=== PATIENT | male | born 1980 | race Caucasian/White ===

== ENCOUNTER 2023-10-28 12:45 | Outpatient (AMB) | payer OTHER, SELFPAY ==
--- NOTE | 2023-10-28 13:31 | MHC.OFFWIV ---
Intake Vital Signs 10/28/23 13:43 BP 122/80 Blood Pressure Location Rt brachial Position Sitting Pulse 77 Pulse Source Pulse Oximeter Temp 98.0 F Temp Source Temporal Artery Scan Pulse Oximetry (%) 97 Intake Visit Reasons: [employer] Dog Bite RT arm Intake Note: pt is here for c.o dog bite on rt arm Patient Tobacco Use Status: Never used Tobacco Allergies No Known Allergies Allergy (Verified 10/28/23 13:32) Do you need a note to return to daycare/school/sports/work: Yes HPI HPI Comments History of Present Illness Details Pt presents with dog bite R hand His dog; occured yesterday Dog UTD vaccines R hand dominant Washed out after it happened + increased redness/warmth today + full ROM digits and no numbness No medicine for symptoms No fever Dog was put down this am No safety concerns Unsure when last tdap was PFSH Social History Patient Tobacco Use Status: Never used Tobacco Review of Systems Const Denies chills and Denies fever(s) Musc Reports deformity, Reports joint swelling, Denies limited range of motion, Denies muscle weakness, Denies numbness and Denies tingling Skin/Breast Reports erythema and Reports wounds Neuro Denies numbness, Denies Sensory deficit (Neuro), Denies tingling and Denies tremor(s) Physical Exam Vital Signs: Last Vital Signs Temp 98.0 F 10/28/23 13:43 Pulse 77 10/28/23 13:43 BP 122/80 10/28/23 13:43 Pulse Ox 97 10/28/23 13:43 General: Non-toxic, NAD. Speaking full sentences. Skin: Warm dry throughout. R hand palmar aspect pt has 2 puncture wounds near thenar eminence. + erythema extending along radial aspect R palm and onto radial aspect R wrist. No erythema to digits on R hand. No bleeding or discharge. + slightly tender to palpation Respiratory: no respiratory distress Cardiac: Radial pulse inatct RUE MSK: + full ROM R wrist and all digits R hand. No tenderness to palpation extensor or flexer surfaces of fingers. Neurology: A/O. No aphasia or facial droop. Gait without abnormality Psych: Good mood and affect Neuro Sensory Exam: No Sensory deficit (Neuro) Assessment & Plan Assessment & Plan (1) Cellulitis of hand: Code(s): L03.119 - Cellulitis of unspecified part of limb Plan: see below (2) Dog bite: Code(s): W54.0XXA - Bitten by dog, initial encounter Qualifiers: Encounter type: initial encounter Qualified Code(s): W54.0XXA - Bitten by dog, initial encounter Plan: Patient seen and evaluated. Area was traced with marker pen Discussed Augmentin use with food; avoid alcohol TDAP updates Discussed s/s that warrant ER evaluation and management. Patient gave verbal understanding and had no additional questions or concerns at time of discharge All questions answered Orders: Orders TDaP Immunization Today Z23 - Encounter for immunization Medications: New amoxicillin-pot clavulanate 875-125 mg 1 tab PO Q12H 14 tabs 0RF L03.119 - Cellulitis of unspecified part of limb, W54.0XXA - Bitten by dog, initial encounter Coding Level of Care Code New Pt Level 3 (19889) Diagnoses Cellulitis of hand L03.119 Dog bite, initial encounter W54.0XXA Encounter type: initial encounter
[2023-10-28 13:43] VITALS: BP 122/80; PULSE 77; TEMP 36.7; O2SAT 97
== END 2023-10-28 14:20 | disposition home or self-care (01) ==
PROVIDERS: Visit Provider Physician Assistant
DX: S61.431A Puncture wound without foreign body of right hand, initial encounter (principal)
CPT/HCPCS: 90471; 90715; 99051; 99203